=== PATIENT | female | born 1940 | race Caucasian/White ===

== ENCOUNTER 2020-05-27 08:19 | Outpatient (CLI) | payer MEDICARE, MEDICAID ==
[~2020-05-27 08:19] MED LIST: ALBU18HF2 IH; ASPI-1009 PO; ATE25T PO; BENZ-16 PO; BUDE0.5A11 IH; CITA20TA28 PO; DIL100C PO; FURO-150 PO; GABA-338 PO; HYDR1TAB69 PO; LACT10SO57 PO; LORA0.5T PO; MELO-82 PO; METAMUCIL1 EACH PO; OXYGEN NS; PRED10TA PO
== END 2020-05-27 23:59 | disposition home or self-care (01) ==
LOC: LAB SPEC 08:19
PROVIDERS: ATTEND Family Medicine
DX: E78.00 Pure hypercholesterolemia, unspecified (principal); I50.9 Heart failure, unspecified; J44.9 Chronic obstructive pulmonary disease, unspecified; F41.9 Anxiety disorder, unspecified; G47.00 Insomnia, unspecified
CPT/HCPCS: 36415

== ENCOUNTER 2021-06-14 15:50 | Emergency (ER) | payer MEDICARE, MEDICAID ==
[~2021-06-14] VITALS: Ht 157.5 cm; Wt 81.8 kg
[2021-06-14] MEDS ORDERED: normal saline 1000ML IV soln IV ONE (16:20)
[2021-06-14] MEDS ORDERED: CefTRIAXone 2gm/D5W 50ml BAG 50 ML IV ONE ×2 (16:20→17:55)
[2021-06-14 16:37] LABS: BASOPHILS % (AUTO) 0.3 % (0-1); EOSINOPHILS # (AUTO) 0.2 X10'3 (0-0.9); EOSINOPHILS % (AUTO) 2.2 % (0-6); HEMATOCRIT 44.3 % (35.0-45.0); HEMOGLOBIN 14.8 g/dl (12.0-16.0); LYMPHOCYTES # (AUTO) 1.9 X10'3 (1.1-4.8); LYMPHOCYTES % (AUTO) 22.8 % (21-51); MEAN CORPUSCULAR HEMOGLOBIN 31.7 PG (27.0-31.0); MEAN CORPUSCULAR HGB CONC 33.3 g/dL (33.0-36.5); MEAN CORPUSCULAR VOLUME 95.2 FL (78-98); MEAN PLATELET VOLUME 9.1 FL (7.4-10.4); MONOCYTES # (AUTO) 0.9 X10'3 (0-0.9); MONOCYTES % (AUTO) 10.9 % (2-12); NEUTROPHILS # (AUTO) 5.2 X10'3 (1.8-7.7); NEUTROPHILS % (AUTO) 63.8 % (42-75); PLATELET COUNT 203 X10'3 (140-440); RED BLOOD COUNT 4.66 X10'6 (4.20-5.60); WHITE BLOOD COUNT 8.2 X10'3 (4.5-11.0)
[2021-06-14 16:40] LABS: ALANINE AMINOTRANSFERASE 24 U/L (12-78); ALBUMIN 3.1 G/DL (3.4-5.0); ALBUMIN/GLOBULIN RATIO 0.7 (1.1-1.5); ALKALINE PHOSPHATASE 169 IU/L (46-116); ANION GAP 5 (8-16); ASPARTATE AMINO TRANSFERASE 18 U/L (10-37); BILIRUBIN,TOTAL 0.4 MG/DL (0.1-1.0); BLOOD UREA NITROGEN 20 MG/DL (7-18); CALCIUM 8.5 MG/DL (8.5-10.1); CHLORIDE 102 MMOL/L (99-107); CREATININE 0.77 MG/DL (0.40-0.90); GLUCOSE 112 MG/DL (70-104); POTASSIUM 3.9 MMOL/L (3.5-5.1); SODIUM 144 MMOL/L (135-145); TOTAL CARBON DIOXIDE 36.7 MMOL/L (24-32); TOTAL PROTEIN 7.7 G/DL (6.4-8.2); eGFR 73 ML/MIN
[2021-06-14 17:41] LABS: CLARITY,URINE CLOUDY (Clear); COLOR,URINE YELLOW (Yellow); GLUCOSE, URINE NEGATIVE (Neg); KETONES,URINE NEGATIVE (Neg); LEUKOCYTE ESTERASE ,URINE SMALL (Neg); OCCULT BLOOD,URINE NEGATIVE (Neg); PROTEIN,URINE NEGATIVE (Neg); UROBILINOGEN,URINE 0.2 E.U/dL (0.2-1.0)
[2021-06-14 17:45] LABS: UA COLLECTION TYPE STRAIGHT CATH
[2021-06-14 17:49] LABS: NITRITES, URINE POSITIVE (Neg)
[2021-06-14 17:56] LABS: SQUAMOUS EPITHELIAL CELL,UR MANY /LPF (FEW)
[2021-06-14 17:57] LABS: MUCUS STRANDS FEW /LPF (Neg)
[2021-06-14 17:58] LABS: BACTERIA,URINE 4+ /HPF (Neg); HYALINE CASTS 0-3 /LPF (NEGATIVE)
[2021-06-14 17:59] LABS: RBC,URINE 0-2 /HPF (0-2)
[2021-06-14 18:01] LABS: WBC CLUMPS,URINE FEW /HPF (NEGATIVE)
[2021-06-14] MEDS ORDERED: CEPH250T PO (18:17)
[2021-06-14 19:39] VITALS: BP 125/66
== END 2021-06-14 19:41 | disposition home or self-care (01) ==
LOC: ER 15:50
DX: N39.0 Urinary tract infection, site not specified (principal); R41.0 Disorientation, unspecified; R50.9 Fever, unspecified; R53.1 Weakness; R45.1 Restlessness and agitation; R53.83 Other fatigue; Z86.69 Personal history of other diseases of the nervous system and sense organs; Z98.890 Other specified postprocedural states; Z88.8 Allergy status to other drugs, medicaments and biological substances; Z79.82 Long term (current) use of aspirin; Z79.2 Long term (current) use of antibiotics; Z79.899 Other long term (current) drug therapy
CPT/HCPCS: 36415; 70450; 71045; 80053; 81001; 83605; 84145; 85025; 87040; 87077; 87088; 87186; 96365; 96366; 99285; J0696; J7030

== ENCOUNTER 2022-10-09 11:13 | Emergency (ER) | payer MEDICARE, MEDICAID ==
[~2022-10-09] VITALS: Ht 149.9 cm; Wt 64.4 kg
[2022-10-09 11:36] VITALS: BP 118/39
[2022-10-09 14:16] LABS: BASOPHILS % (AUTO) 0.5 % (0-1); EOSINOPHILS # (AUTO) 0.3 X10'3 (0-0.9); EOSINOPHILS % (AUTO) 4.8 % (0-6); HEMATOCRIT 40.7 % (35.0-45.0); HEMOGLOBIN 13.6 g/dl (12.0-16.0); LYMPHOCYTES # (AUTO) 2.2 X10'3 (1.1-4.8); LYMPHOCYTES % (AUTO) 37.7 % (21-51); MEAN CORPUSCULAR HEMOGLOBIN 31.9 PG (27.0-31.0); MEAN CORPUSCULAR HGB CONC 33.4 g/dL (33.0-36.5); MEAN CORPUSCULAR VOLUME 95.4 FL (78-98); MEAN PLATELET VOLUME 8.1 FL (7.4-10.4); MONOCYTES # (AUTO) 0.8 X10'3 (0-0.9); NEUTROPHILS # (AUTO) 2.5 X10'3 (1.8-7.7); PLATELET COUNT 203 X10'3 (140-440); RED BLOOD COUNT 4.27 X10'6 (4.20-5.60); RED CELL DISTRIBUTION WIDTH 13.7 % (11.5-14.5); WHITE BLOOD COUNT 5.8 X10'3 (4.5-11.0)
[2022-10-09 14:44] LABS: ALANINE AMINOTRANSFERASE 16 U/L (12-78); ALBUMIN 2.7 G/DL (3.4-5.0); ALBUMIN/GLOBULIN RATIO 0.6 (1.1-1.5); ALKALINE PHOSPHATASE 114 IU/L (46-116); ANION GAP 5 (8-16); ASPARTATE AMINO TRANSFERASE 16 U/L (10-37); BILIRUBIN,TOTAL 0.2 MG/DL (0.1-1.0); BLOOD UREA NITROGEN 18 MG/DL (7-18); BUN/CREATININE RATIO 36.7 (6.6-38.0); CALCIUM 8.1 MG/DL (8.5-10.1); CHLORIDE 101 MMOL/L (99-107); CREATININE 0.49 MG/DL (0.40-0.90); GLUCOSE 94 MG/DL (70-104); PHENYTOIN (DILANTIN) 25.5 UG/ML (10.0-20.0); POTASSIUM 3.8 MMOL/L (3.5-5.1); SODIUM 142 MMOL/L (135-145); TOTAL CARBON DIOXIDE 36.5 MMOL/L (24-32); TOTAL PROTEIN 6.9 G/DL (6.4-8.2); eGFR > 90 ML/MIN
== END 2022-10-09 15:46 | disposition home or self-care (01) ==
LOC: ER 11:14
DX: R79.9 Abnormal finding of blood chemistry, unspecified (principal); Z88.8 Allergy status to other drugs, medicaments and biological substances
CPT/HCPCS: 36415; 80053; 80185; 85025; 99283

== ENCOUNTER 2024-09-14 09:37 | Outpatient (CLI) | payer MEDICARE, MEDICAID ==
[~2024-09-14 09:37] MED LIST changes: -LACT10SO57 PO; +LACT10SO88 PO
== END 2024-09-14 23:59 | disposition home or self-care (01) ==
LOC: CARD DIAG 09:37
PROVIDERS: ATTEND Family Medicine
DX: I08.8 Other rheumatic multiple valve diseases (principal); I11.0 Hypertensive heart disease with heart failure; I50.9 Heart failure, unspecified
CPT/HCPCS: 93306

== ENCOUNTER 2024-11-04 22:19 | Emergency (ER) | payer MEDICARE, MEDICAID ==
[~2024-11-04] VITALS: Ht 152.4 cm; Wt 82.0 kg
[~2024-11-04 22:19] MED LIST changes: +LACT-383 PO; -LACT10SO88 PO
[2024-11-04 22:20] VITALS: TEMP 97.6
[2024-11-05 00:33] VITALS: BP 129/57; PULSE 60; RESP 13; O2SAT 98
== END 2024-11-05 00:34 | disposition home or self-care (01) ==
LOC: ER 22:20
DX: R04.2 Hemoptysis (principal); J45.909 Unspecified asthma, uncomplicated; I50.9 Heart failure, unspecified; F32.A Depression, unspecified; Z88.8 Allergy status to other drugs, medicaments and biological substances; Z79.82 Long term (current) use of aspirin; Z79.899 Other long term (current) drug therapy; Z98.890 Other specified postprocedural states
CPT/HCPCS: 71045; 99284

== ENCOUNTER 2024-12-04 10:21 | Emergency (ER) | payer MEDICARE, MEDICAID ==
[~2024-12-04] VITALS: Ht 152.4 cm; Wt 81.8 kg
[2024-12-04 10:25] VITALS: TEMP 97.9
[2024-12-04] MEDS ORDERED: GUAI-647 PO (11:47)
[2024-12-04] MEDS ORDERED: GUAI5SYR5 PO (11:49)
[2024-12-04 11:57] VITALS: BP 146/64; PULSE 64; RESP 16; O2SAT 98
== END 2024-12-04 11:59 | disposition home or self-care (01) ==
LOC: ER 10:23
DX: J20.9 Acute bronchitis, unspecified (principal); R05.9 Cough, unspecified; J44.0 Chronic obstructive pulmonary disease with (acute) lower respiratory infection; G80.9 Cerebral palsy, unspecified; Z88.8 Allergy status to other drugs, medicaments and biological substances; Z79.82 Long term (current) use of aspirin; Z79.899 Other long term (current) drug therapy; Z98.890 Other specified postprocedural states
CPT/HCPCS: 71045; 99284; A4615